=== PATIENT | male | born 1980 | race Two or more races ===

== ENCOUNTER 2016-10-30 02:06 | Emergency (ER) | payer OTHER ==
[2016-10-30 02:33] VITALS: TEMP 98.6; BMI 26.4
[2016-10-30] MEDS ORDERED: DIPHTH,PERTUSS(ACELL),TET 0.5 ML DISP.SYRIN IM ONE (03:06)
--- NOTE | 2016-10-30 04:29 | PDOC ---
History of Present Illness - General Chief Complaint: Injury Stated Complaint: EYE INJURY Time Seen by Provider: 10/30/16 02:59 - History of Present Illness Initial Comments: 10/30/16 04:26 CHIEF COMPLAINT: laceration to L eyelid HISTORY OF PRESENT ILLNESS: 36 yo M with hx of DVT presents to ED with laceration to L eyelid s/p injury. Patient reports that he was playing basketball when another player headbutted him in the L eye. Patient denies any fall, LOC, change in vision. No recent travel or sick contacts. PAST MEDICAL HISTORY: Denies past medical history FAMILY HISTORY: Denies SOCIAL HISTORY: Denies tobacco, alcohol, illicit drug use. SURGICAL HISTORY: Denies ALLERGIES: No known drug allergies REVIEW OF SYSTEMS General/Constitutional: Denies fever or chills. Denies weakness, weight change. HEENT: "I got headbutted in the eye." Denies change in vision. Denies ear pain or discharge. Denies sore throat. Cardiovascular: Denies chest pain or shortness of breath. Respiratory: Denies cough, wheezing, or hemoptysis. Gastrointestinal: Denies nausea, vomiting, diarrhea or constipation. Denies rectal bleeding. Genitourinary: Denies dysuria, frequency, or change in urination. Musculoskeletal: Denies joint or muscle swelling or pain. Denies neck or back pain. Skin and breasts: Denies rash or easy bruising. Neurologic: Denies headache, vertigo, loss of consciousness, or loss of sensation. PHYSICAL EXAM General Appearance: Well-appearing, appropriately dressed. No apparent distress. HEENT: 1 cm near full thickness laceration to L eyelid. Mild ptosis of L eye. EOMI, PERRLA, normal voice, TMs normal, pharynx normal. No conjunctival pallor. Respiratory/Chest: Lungs CTAB. Cardiovascular: RRR. S1, S2. Musculoskeletal/Extremities: Normal inspection. FROM of all extremities, normal capillary refill. Pelvis Stable. No CVA tenderness. No tenderness to extremities, pedal edema, swelling, erythema or deformity. Integumentary: Appropriate color, dry, warm. No cyanosis, erythema, jaundice or rash Neurologic: die repairer trimmer dies II-XII intact. Fully oriented, alert. Appropriate mood/affect. Motor strength 5/5. No appreciable EOM palsy, facial droop or sensory deficit. Past History - Past Medical History Allergies/Adverse Reactions: Allergies Allergy/AdvReac Type Severity Reaction Status Date / Time iodine Allergy Verified 10/30/16 02:27 Home Medications: Ambulatory Orders NK [No Known Home Medication] 10/30/16 - Psycho/Social/Smoking Cessation Hx Suicidal Ideation: No Smoking History: Unknown if ever smoked *Physical Exam - Vital Signs Last Vital Signs Temp Pulse Resp BP Pulse Ox 98.6 F 75 18 122/70 98 10/30/16 02:25 10/30/16 02:25 10/30/16 02:25 10/30/16 02:25 10/30/16 02:25 ED Treatment Course - Medications Given in the ED: ED Medications Discontinued Medications Generic Name Dose Route Start Last Admin Trade Name Freq PRN Reason Stop Dose Admin Diphtheria/Tetanus/Acell Pertussis 0.5 ml 10/30/16 03:06 10/30/16 03:17 Boostrix - IM 10/30/16 03:07 0.5 ml .ONCE ONE Administration Medical Decision Making - Medical Decision Making 10/30/16 04:28 36 yo M with hx of DVT presents to ED with laceration to L eyelid s/p injury. Patient is unsure when he last had Tdap. -Tdap IM Ophtho paged. 10/30/16 06:24 Awaiting ophtho callback. Case discussed in detail with oncoming emergency provider including history, physical exam and ancillary studies. In brief, this patient is being seen in the ED for a chief complaint of: lac to L eyelid I have completed the initial assessment interview note and have ordered the following labs: none Plan for disposition as follows: awaiting ophtho vs transfer to [facility] for plastics Oncoming NPA Kyara has assumed care for the patient and will complete the evaluation and treatment. *DC/Admit/Observation/Transfer - Referrals Referrals: Ray Willson MD, MD [Primary Care Provider] -
--- NOTE | 2016-10-30 07:36 | PDOC ---
*Physical Exam - Vital Signs Last Vital Signs Temp Pulse Resp BP Pulse Ox 98.6 F 75 18 122/70 98 10/30/16 02:25 10/30/16 02:25 10/30/16 02:25 10/30/16 02:25 10/30/16 02:25 ED Treatment Course - Medications Given in the ED: ED Medications Discontinued Medications Generic Name Dose Route Start Last Admin Trade Name Freq PRN Reason Stop Dose Admin Diphtheria/Tetanus/Acell Pertussis 0.5 ml 10/30/16 03:06 10/30/16 03:17 Boostrix - IM 10/30/16 03:07 0.5 ml .ONCE ONE Administration Medical Decision Making - Medical Decision Making 10/30/16 07:35 Signout received from GUALBERTO Muller. Briefly, this is a healthy 36 year old male who sustained a laceration to the left eyelid. Ophthalmology has been contacted and will see the patient in the ED. 10/30/16 09:07 Opthalmologist at bedside for laceration repair. Reports no tendon involvement. Patient to follow up in ophtho office tomorrow. Return precautions reviewed. *DC/Admit/Observation/Transfer Diagnosis at time of Disposition: Eyelid laceration, left Qualifiers: Encounter type: initial encounter Qualified Code(s): S01.112A - Laceration without foreign body of left eyelid and periocular area, initial encounter - Discharge Dispostion Admit: No - Referrals Referrals: Dany Andrew MD [Staff Physician] - (Tomorrow) - Patient Instructions Printed Discharge Instructions: DI for Eyelid Surgery Additional Instructions: -Apply erythromycin ophthalmic ointment to the wound 3 times a day -Follow up with Dr. Andrew in the office tomorrow at [address] [place] [address] -Return here for blurred vision or any other concerning symptoms - Post Discharge Activity
[2016-10-30] MEDS ORDERED: LIDOCAINE HCL/PF 1% SDV 5ML VIAL ONE (07:56)
[2016-10-30] MEDS ORDERED: LIDOCAINE HCL 2% (20ML MULTI-DOSE VIAL) NR ONE (08:00)
[2016-10-30] MEDS ORDERED: LIDOCAINE 1%/EPI 1:100000 (50 ML MULTI DOSE VIAL) ONE (08:31)
[2016-10-30] MEDS ORDERED: ERYTHROMYCIN 0.5% OPHTHALMIC OINTMENT 3.5 GM TUBE OD ONE (09:20)
[2016-10-30] MEDS ORDERED: ERYTHROMYCIN 0.5% OPHTHALMIC OINTMENT 3.5 GM TUBE ONE (09:39)
[2016-10-30 09:47] VITALS: BP 105/60; PULSE 52
== END 2016-10-30 09:47 | disposition home or self-care (01) ==
LOC: JER 02:06
PROC: 08QPXZZ Repair Left Upper Eyelid, External Approach (ICD-10-PCS; principal; 2016-10-30)
DX: S01.112A Laceration without foreign body of left eyelid and periocular area, initial encounter (principal); W50.0XXA Accidental hit or strike by another person, initial encounter; Y93.89 Activity, other specified; Y92.9 Unspecified place or not applicable; Z86.718 Personal history of other venous thrombosis and embolism
CPT/HCPCS: 90715; 99282-25

== ENCOUNTER 2022-03-29 23:49 | Emergency (ER) | payer OTHER ==
[2022-03-29 23:54] VITALS: BP 121/78; PULSE 90; RESP 17; TEMP 99.3; BMI 27.7
== END 2022-03-30 06:00 | disposition left against medical advice (07) ==
LOC: JER 23:49
DX: Z11.1 Encounter for screening for respiratory tuberculosis (principal)
CPT/HCPCS: 99281-25